=== PATIENT | male | born 1995 | race African-American/Black ===

== ENCOUNTER 2023-12-06 20:18 | Emergency (ER) | payer OTHER ==
[~2023-12-06] VITALS: Ht 185.4 cm; Wt 95.5 kg
[~2023-12-06 20:18] MED LIST: NO MEDS
[2023-12-06 20:33] VITALS: BP 139/79; PULSE 73; RESP 16; TEMP 98.7
[2023-12-06] MEDS: KETOROLAC TROMETHAMINE 60 MG/2 ML VIAL IM ONE (22:30)
[2023-12-06] MEDS: METHOCARBAMOL 500 MG TABLET PO ONE (22:30)
[2023-12-06] MEDS: LIDOCAINE 5% TRANSDERMAL PATCH TD ONE (22:31)
[2023-12-06] MEDS ORDERED: METH-659 PO (22:48)
[2023-12-06] MEDS ORDERED: IBUP-1492 PO (22:48)
[2023-12-06] MEDS ORDERED: LIDO700A15 TP (22:48)
== END 2023-12-06 22:59 | disposition home or self-care (01) ==
LOC: EMS 20:23
DX: S39.012A Strain of muscle, fascia and tendon of lower back, initial encounter (principal); X58.XXXA Exposure to other specified factors, initial encounter; Y93.89 Activity, other specified; Y92.89 Other specified places as the place of occurrence of the external cause; Y99.8 Other external cause status
CPT/HCPCS: 99283; 96372; J1885

== ENCOUNTER 2024-12-13 00:38 | Emergency (ER) | payer MEDICAID, OTHER ==
[~2024-12-13] VITALS: Ht 182.9 cm; Wt 90.9 kg
[~2024-12-13 00:38] MED LIST changes: +IBUP-1492 PO; +LIDO-57 TP; +METH-659 PO
[2024-12-13 00:58] VITALS: BP 147/96; PULSE 130; RESP 16; TEMP 99.1; O2SAT 98
[2024-12-13 01:38] LABS: APPEARANCE,URINE HAZY (CLEAR); COLOR,URINE YELLOW (YELLOW); GLUCOSE, URINE (UA) NEGATIVE (NEGATIVE); KETONES,URINE 40-60 mg/dL (NEGATIVE); LEUKOCYTE ESTERASE ,URINE TRACE (NEGATIVE); NITRATE,URINE NEGATIVE (NEGATIVE); OCCULT BLOOD,URINE TRACE (NEGATIVE); PROTEIN,URINE 300-600,SEE CONFIRM mg/dL (NEGATIVE); SPECIFIC GRAVITIY, URINE 1.033 (1.003-1.030)
[2024-12-13 01:44] LABS: BACTERIA,URINE None Seen /HPF (None Seen); BILIRUBIN,URINE SMALL (NEGATIVE); RBC,URINE 0-2 /HPF (0-2); SQUAMOUS EPITHELIAL CELL,UR Few /LPF (None Seen); SULFOSALICYLIC ACID,URINE 4+ (Negative); WBC,URINE 0-2 /HPF (0-5)
[2024-12-13 01:52] LABS: ALCOHOL, URINE DRUG SCREEN NEGATIVE (NEGATIVE); AMPHET/METH SCREEN,URINE POSITIVE (NEGATIVE); BARBITURATE SCREEN, URINE NEGATIVE (NEGATIVE); BENZODIAZEPINES SCREEN,URINE NEGATIVE (NEGATIVE); CANNABINOID SCREEN,URINE POSITIVE (NEGATIVE); COCAINE SCREEN,URINE POSITIVE (NEGATIVE); METHADONE SCREEN, URINE NEGATIVE (NEGATIVE); OPIATE SCREEN,URINE NEGATIVE (NEGATIVE); PHENCYCLIDINE SCREEN,URINE NEGATIVE (NEGATIVE)
== END 2024-12-13 01:59 | disposition left against medical advice (07) ==
LOC: EMS 00:42
DX: R41.82 Altered mental status, unspecified (principal); Z79.899 Other long term (current) drug therapy; Z53.21 Procedure and treatment not carried out due to patient leaving prior to being seen by health care provider
CPT/HCPCS: 80307; 81001; 81002; 93005; 99283